=== PATIENT | male | born 1955 | race Two or more races ===

== ENCOUNTER 2023-07-31 08:54 | Outpatient (OUT) | payer MEDICARE, OTHER, SELFPAY ==
[2023-07-31 09:20] LABS: Basophils Absolute Auto 0.1 10^3/uL (0.0-0.1); Basophils Percent Auto 1.2 % (0.2-2.0); Eosinophils Absolute Auto 0.3 10^3/uL (0.0-0.7); Hematocrit 44.2 % (42.0-54.0); Hemoglobin 14.9 g/dL (14.0-18.0); Immature Granulocytes Abs Auto 0.04 10^3/uL (0.00-0.03); Immature Granulocytes Pct Auto 0.4 % (0.0-0.5); Lymphocytes Absolute Auto 2.9 10^3/uL (1.2-3.8); Lymphocytes Percent Auto 30.6 % (20.5-60.0); Mean Corpuscular HGB Conc 33.7 g/dL (29.9-35.2); Mean Corpuscular Hemoglobin 30.2 pg (25.9-34.0); Mean Corpuscular Volume 89.7 fL (80.0-94.0); Mean Platelet Volume 9.6 fL (9.5-13.5); Monocytes Absolute Auto 0.8 10^3/uL (0.3-0.8); Monocytes Percent Auto 8.6 % (1.7-12.0); Neutrophils Absolute Auto 5.4 10^3/uL (1.4-6.5); Neutrophils Percent Auto 56.2 % (43.0-75.0); Platelet Count 277 10^3/uL (150-450); Red Blood Count 4.93 10^6/uL (4.70-6.10); Red Cell Distribution Width 13.2 % (11.0-15.0); White Blood Count 9.5 10^3/uL (4.0-11.0)
[2023-07-31 09:36] LABS: Estimated Average Glucose 123 mg/dL; Glycohemoglobin A1C 5.9 % (4.5-6.2)
[2023-07-31 10:06] LABS: Prostate Specific Antigen Dx 0.84 ng/mL (<=4.00)
[2023-07-31 10:11] LABS: Alanine Aminotransferase 35 U/L (16-63); Albumin Globulin Ratio 0.9; Albumin Level 3.6 g/dL (3.4-5.0); Alkaline Phosphatase 90 U/L (46-116); Anion Gap 15.2; Aspartate Amino Transferase 11 U/L (15-37); BUN Creatinine Ratio 25.7; Bilirubin Direct 0.1 mg/dL (0.0-0.2); Bilirubin Total 0.5 mg/dL (0.2-1.0); Carbon Dioxide 24.6 mmol/L (21.0-32.0); Chloride 103 mmol/L (98-107); Cholesterol 238 mg/dL (<=200); Estimated GFR (African America >60 (>=60); Estimated GFR (Non-African Ame >60 (>=60); Glucose 119 mg/dL (74-106); HDL Cholesterol 48 mg/dL (40-60); Potassium 3.8 mmol/L (3.5-5.1); Sodium 139 mmol/L (136-145); Thyroid Stimulating Hormone 3.372 uIU/mL (0.358-3.740); Total Protein 7.6 g/dL (6.4-8.2); Triglycerides 389 mg/dL (<=150); VLDL CHOLESTEROL 77.8 mg/dL
== END 2023-07-31 08:55 | disposition home or self-care (01) ==
LOC: LAB 09:01
PROVIDERS: PCP Family Medicine; Visit Provider Family Medicine
DX: R73.03 Prediabetes (principal); Z79.899 Other long term (current) drug therapy; E78.5 Hyperlipidemia, unspecified; Z12.5 Encounter for screening for malignant neoplasm of prostate; E66.9 Obesity, unspecified
CPT/HCPCS: 36415; 80048; 80061; 80076; 83036; 84153; 84443; 85025

== ENCOUNTER 2024-09-02 08:49 | Outpatient (OUT) | payer MEDICARE, OTHER, SELFPAY ==
[2024-09-02 09:30] LABS: Basophils Absolute Auto 0.1 10^3/uL (0.0-0.1); Eosinophils Absolute Auto 0.4 10^3/uL (0.0-0.7); Eosinophils Percent Auto 3.5 % (0.9-7.0); Hematocrit 44.9 % (42.0-54.0); Hemoglobin 15.1 g/dL (14.0-18.0); Immature Granulocytes Abs Auto 0.05 10^3/uL (0.00-0.03); Immature Granulocytes Pct Auto 0.5 % (0.0-0.5); Lymphocytes Absolute Auto 2.7 10^3/uL (1.2-3.8); Lymphocytes Percent Auto 25.5 % (20.5-60.0); Mean Corpuscular HGB Conc 33.6 g/dL (29.9-35.2); Mean Corpuscular Hemoglobin 30.3 pg (25.9-34.0); Mean Corpuscular Volume 90.2 fL (80.0-94.0); Mean Platelet Volume 9.7 fL (9.5-13.5); Monocytes Absolute Auto 1.1 10^3/uL (0.3-0.8); Neutrophils Absolute Auto 6.3 10^3/uL (1.4-6.5); Neutrophils Percent Auto 59.5 % (43.0-75.0); Platelet Count 275 10^3/uL (150-450); Red Blood Count 4.98 10^6/uL (4.70-6.10); Red Cell Distribution Width 13.3 % (11.0-15.0); White Blood Count 10.5 10^3/uL (4.0-11.0)
[2024-09-02 10:22] LABS: Alanine Aminotransferase 37 U/L (16-63); Albumin Globulin Ratio 0.9; Albumin Level 3.7 g/dL (3.4-5.0); Alkaline Phosphatase 89 U/L (46-116); Aspartate Amino Transferase 20 U/L (15-37); Bilirubin Direct 0.1 mg/dL (0.0-0.2); Bilirubin Total 0.5 mg/dL (0.2-1.0); Calcium 8.9 mg/dL (8.5-10.1); Chloride 103 mmol/L (98-107); Chol HDL Ratio 4.5; Cholesterol 221 mg/dL (<=200); Estimated GFR (African America >60 (>=60 mL/min/1.73m^2); Estimated GFR (Non-African Ame >60 (>=60 mL/min/1.73m^2); Globulin 3.9 g/dL; Glucose 116 mg/dL (74-106); HDL Cholesterol 49 mg/dL (40-60); Sodium 142 mmol/L (136-145); Thyroid Stimulating Hormone 3.547 uIU/mL (0.358-3.740); Total Protein 7.6 g/dL (6.4-8.2); Triglycerides 320 mg/dL (<=150)
[2024-09-02 10:32] LABS: Prostate Specific Antigen Scrn 0.96 ng/mL (<=4.00)
[2024-09-02 11:19] LABS: Estimated Average Glucose 131 mg/dL; Glycohemoglobin A1C 6.2 % (4.5-6.2)
== END 2024-09-02 08:50 | disposition home or self-care (01) ==
LOC: LAB 08:52
PROVIDERS: PCP Family Medicine; Visit Provider Family Medicine
DX: R73.03 Prediabetes (principal); Z79.899 Other long term (current) drug therapy; I10 Essential (primary) hypertension; E78.5 Hyperlipidemia, unspecified; Z12.5 Encounter for screening for malignant neoplasm of prostate; E66.812 Obesity, class 2; E66.01 Morbid (severe) obesity due to excess calories; Z68.39 Body mass index [BMI] 39.0-39.9, adult
CPT/HCPCS: 36415; 80048; 80061; 80076; 83036; 84443; 85025; G0103

== ENCOUNTER 2024-12-26 16:43 | Emergency (ER) | payer MEDICARE, OTHER, SELFPAY ==
--- OUTSIDE RECORDS SUMMARY | 2024-12-26 16:58 | XMS_ITS | Encounter Summary ---
Author Organization [facility] Address [address] [place] [address] Care Team Providers Care Software Installation Engineer Name Role Phone Flavio Leon MD Primary Care Provider [phone] Flavio Leon MD Unavailable Encounter Details Date Type Department Care Team (Late st Contact Info) Description 09/02/2024 Results Follow-Up [facility] [address] [place] [address] Flavio Leon MD [address] [place] [address] ALL CBC WITH AUTO DIFF, HM[facility] LIVER PANEL, ALL BASIC METABOLIC PANEL, Additional followed-up results: 4 Social History Tobacco Use Types Packs/Day Years Used Date Smoking Tobacco: Never Smokeless Tobacco: Never B1300 Health Literacy Answer Date Recor ded How often do you need to hav e someone help you when you read instructions, pamphlets, or other written material from your doctor or pharmacy? Rarely 10/29/2023 Social Connection and Isolation Panel [NHANES] A nswer Date Recorded In a typical week, how many times do you talk on the phone with family, friends, or neighbors? Once a week 10/29/2023 How often do you get togethe r with friends or relatives? Patient declined 10/29/2023 How often do you attend scientology or baptism serv ices? Patient declined 10/29/2023 Do you belong to any clubs o r organizations such as scientology groups, unions, fraternal or athletic groups, or school groups? No 10/29/2023 How often do you attend meet ings of the clubs or organizations you belong to? Patient declined 10/29/2023 Are you , , di vorced, , never , or living with a partner? 10/29/2023 AUDIT-C Answer Date Recorded Q1: How often do you have a drink containing alc ohol? Monthly or less 10/29/2023 Q2: How many drinks containi ng alcohol do you have on a typical day when you are drinking? 1 or 2 10/29/2023 Q3: How often do you have si x or more drinks on one occasion? Never 10/29/2023 Overall Financial Resource Strain (CARDIA) Answe r Date Recorded How hard is it for you to pa y for the very basics like food, housing, medical care, and heating? Not hard at all 10/29/2023 PHQ-2 Answer Date Recorded Patient Health Questionnaire-2 Score 0 03/09/2024 [facility] - Occupational Stress Questionnaire Answer Date Recorded Do you feel stress - tense, restless, nervous, or anxious, or unable to sleep at night because your mind is troubled all the time - these days? Only a little 10/29/2023 Exercise Vital Sign Answer Date Recorde d On average, how many days pe r week do you engage in moderate to strenuous exercise (like a brisk walk)? Patient declined On average, how many minutes do you engage in exercise at this level? Patient declined 10/29/2023 Hunger Vital Sign Answer Date Recorded Within the past 12 months, y ou worried that your food would run out before you got the money to buy more. Never true 10/29/19 24 Within the past 12 months, t he food you bought just didn't last and you didn't have money to get more. Never true 10/29/2023 PRAPARE - Transportation Answer Date Re corded In the past 12 months, has l ack of transportation kept you from medical appointments or from getting medications? No 10/13 In the past 12 months, has l ack of transportation kept you from meetings, work, or from getting things needed for daily living? No 10/29/2023 Housing Stability Vital Sign Answer Chance e Recorded In the last 12 months, was t here a time when you were not able to pay the mortgage or rent on time? No 10/29/2023 Number of Times Moved in the Last Year Not on fi le 10/29/2023 At any time in the past 12 m [facility], were you homeless or living in a care home (including now)? No 10/29/2023 Sex and Gender Information Value Date Recorded Sex Assigned at Not on file Legal Sex Male 7:22 PM EDT Gender Identity Not on file Sexual Orientation Not on file documented as of this encounter Plan of Treatment Not on file documented as of this encounter Visit Diagnoses Not on filedocumented in this encounter Additional Health Concerns Assessment Noted Time PHQ-9 Depression Total Score: 3 03/09/20 24 8:00 AM EST documented as of this encounter Care Teams Software Installation Engineer Relationship Specialty Start Date End Date Flavio Leon MD PCP - General Family Medicine 07/30/23 Flavio Leon MD [address] [place] [address] PCP - ACO Reach 05/22/24 documented as of this encounter
--- OUTSIDE RECORDS SUMMARY | 2024-12-26 16:58 | XMS_ITS | Clinical Summary ---
Author Organization [facility] tem Address [id number] [address] [place] [address] Care Team Providers Care Lead Massage Therapist Name Role Phone Flavio Leon MD Primary Care Provider [phone] Allergies Active Allergy Reactions Criticality Noted Date Comments No Known Drug Allergies 07/03/2016 Medications meloxicam (MOBIC) 15 mg tablet Take 15 mg by mouth daily. Active timolol (TIMOPTIC) 0.5 % ophthalmic solution INSTILL 1 DROP IN BOTH EYES EVERY MORNING 01/16/2019 Active glucosamine-cho ndroitin 500-400 mg tablet Take 1 tablet by mouth 3 (three) times a day. Active zfwpblef-qgj-PC -lycopen-lutein (CENTRUM SILVER) 0.4-300-250 mg-mcg-mcg tablet Take 1 tablet by mouth daily. Active Active Problems No known active problems Family History Medical History Relation Name Comments Cancer Brother 1 1 LIPOCARCINOMA Cancer Brother 2 2 PROSTATE Cancer Father TESTICLE Diabetes Mother Hypertension Mother Relation Name Status Comments Brother 1 1 Brother 2 2 Father Alive Mother Alive Social History Tobacco Use Types Packs/Day Years Used Date Smoking Tobacco: Never Smokeless Tobacco: Never Alcohol Use Standard Drinks/Week Comments Not Currently 0 (1 standard drink = 0.6 oz pur e alcohol) Childcare Answer Date Recorded Childcare Unknown 09/24/2018 Employment Answer Date Recorded Employment Unknown 09/24/2018 Purpose - Life Answer Date Recorded Purpose and direction in life Unknown Sex and Gender Information Value Date Recorded Sex Assigned at Not on file Legal Sex Male 11:24 AM EDT Gender Identity Not on file Sexual Orientation Not on file Last Filed Vital Signs Vital Sign Reading Time Taken Comments Blood Pressure 142/80 04/22/2019 9:31 AM EST Pulse 88 02/27/2016 3:37 PM EST Temperature - - Respiratory Rate 14 02/27/2016 3:37 PM EST Oxygen Saturation 98% 02/27/2016 3:37 PM EST Inhaled Oxygen Concentration - - Weight 105.2 kg (232 lb) 04/22/2019 9:31 AM EST Height 175.3 cm (5' 9 ) 04/22/2019 9:31 AM EST Body Mass Index 34.26 04/22/2019 9:31 AM EST Plan of Treatment Health Maintenance Due Date Last Done Comments Depression Screening 1965 Tobacco Screening 1965 Adult BMI Screening 11/23/1971 DTaP,Tdap and Td Vaccines (1 - Tdap) 1972 Zoster (Shingles) Vaccine (1 of 2) 11/23/2003 Fall Risk Screening 2018 Influenza Vaccine 12/14/2024 Medical Devices Not on file Insurance [facility] MEDICARE Care Teams Lead Massage Therapist Relationship Specialty Start Date End Date Flavio Leon MD PCP - General Family Medicine 04/13/19
--- OUTSIDE RECORDS SUMMARY | 2024-12-26 16:58 | XMS_ITS | Clinical Summary ---
Author Organization [facility] Address [address] [place] [address] Care Team Providers Care Automobile Contract Clerk Name Role Phone Flavio Leon MD Primary Care Provider [phone] Flavio Leon MD Unavailable Allergies No known active allergies Medications latanoprost (Xalatan) 0.005 % ophthalmic solution instill 1 (ONE) DROP IN BOTH EYES AT BEDTIME 4 Active timolol (Timoptic) 0.5 % ophthalmic solution instill 1 DROP IN BOTH EYES IN THE MORNING 3 Active meloxicam (Mobic) 15 MG tabletIndications :Unspecified osteoarthritis, unspecified site TAKE 1 TABLET BY MOUTH DAILY 90 tablet 3 5 Active losartan (Cozaar) 25 MG tabletIndications :Benign essential hypertension TAKE 1 TABLET BY MOUTH DAILY 30 tablet 5 5 Active Active Problems Problem Noted Date Diagnosed Date Medicare annual wellness visit, subsequent 03/09 Assessment & Plan (03/09/2024 8:49 AM EST): Reviewed labs. Discussed proper diet and regular aerobic exercise. Need aerobic exercise 5-6 days a week for 30 minutes at a time. Smaller portions and limit total calories. Cologuard normal July 2023. Tetanus every 10 years. Advised not to smoke. Discussed daily Aspirin therapy. Arthritis 07/30/2023 Assessment & Plan (08/31/2024 9:08 AM EDT): Pain stable and use mobic PRN. Increase activity and walk regularly. Assessment & Plan (03/09/2024 8:43 AM EST): Pain stable and use mobic PRN. Increase activity and walk regularly. Assessment & Plan (12/05/2023 9:40 AM EDT): Pain stable and use mobic PRN. Increase activity and walk regularly. Assessment & Plan (07/30/2023 11:19 AM EDT): Pain stable and use mobic PRN. Increase activity and walk regularly. See's palsy 07/30/2023 Benign essential hypertension 07/30/2023 Assessment & Plan (08/31/2024 9:08 AM EDT): BP controlled and monitor PRN. Assessment & Plan (03/09/2024 8:43 AM EST): BP controlled and monitor PRN. Assessment & Plan (12/05/2023 9:40 AM EDT): BP controlled and monitor PRN. Assessment & Plan (11/05/2023 10:44 AM EDT): BP remains elevated and start treatment with losartan. Monitor BP PRN. Discussed DASH diet. Assessment & Plan (07/30/2023 11:19 AM EDT): BP elevated and need to monitor PRN. Discussed DASH diet. If regularly 140/90 or greater will need to treat for HTN. Dyslipidemia 07/30/2023 Glaucoma 07/30/2023 Prediabetes 07/30/2023 Encounter for long-term (current) use of medicat ions 07/30/2023 Class 2 severe obesity due t o excess calories with serious comorbidity and body mass index (BMI) of 39.0 to 39.9 in adult 07/30/2023 Assessment & Plan (08/31/2024 9:09 AM EDT): Weight unchanged. Discussed proper diet and regular aerobic exercise. Recommend Weight Watchers and need to limit calories and smaller portions. Need to increase activity and regular aerobic exercise several days a week for 30 minutes at a time. Assessment & Plan (03/09/2024 8:43 AM EST): Weight unchanged. Discussed proper diet and regular aerobic exercise. Recommend Weight Watchers and need to limit calories and smaller portions. Need to increase activity and regular aerobic exercise several days a week for 30 minutes at a time. Assessment & Plan (12/05/2023 9:40 AM EDT): Weight down 3 pounds since last visit. Discussed proper diet and regular aerobic exercise. Recommend Weight Watchers and need to limit calories and smaller portions. Need to increase activity and regular aerobic exercise several days a week for 30 minutes at a time. Assessment & Plan (07/30/2023 11:19 AM EDT): Discussed proper diet and regular aerobic exercise. Recommend Weight Watchers and need to limit calories and smaller portions. Need to increase activity and regular aerobic exercise several days a week for 30 minutes at a time. Screening PSA (prostate specific antigen) 2023 Encounters Date Type Department Care Team Description 10/29/2024 Refill [facility] [address] [place] [phone] Flavio Leon MD Benign essential hypertension 10/19/2024 Telephone [facility] [address] [place] [address] Dorcas Iglesias, [facility] Left hearing aid problem from Last 3 Months Social History Tobacco Use Types Packs/Day Years Used Date Smoking Tobacco: Never Smokeless Tobacco: Never Tobacco Cessation:Counseling Given: Not Answered B1300 Health Literacy Answer Date Recor ded [...] declined 10/29/2023 How often do you attend christianity or zoroastrian serv ices? Patient declined 10/29/2023 Do you belong to any clubs o r organizations such as christianity groups, unions, fraternal or athletic groups, or [...] Recorded Patient Health Questionnaire-2 Score 0 03/09/2024 [facility] Health - Occupational Stress [...] any time in the past 12 m [facility], were you homeless or living in a detention (including now)? No 10/29/2023 Sex and Gender Information Value Date Recorded Sex Assigned at Not on file Legal Sex Male 7:22 PM EDT Gender Identity Not on file Sexual Orientation Not on file Last Filed Vital Signs Vital Sign Reading Time Taken Comments Blood Pressure 128/70 08/31/2024 8:37 AM EDT Pulse 98 08/31/2024 8:37 AM EDT Temperature 36.2 C (97.1 F) 08/31/2024 8:37 AM EDT Respiratory Rate 18 08/31/2024 8:37 AM EDT Oxygen Saturation 97% 08/31/2024 8:37 AM EDT Inhaled Oxygen Concentration - - Weight 121 kg (266 lb) 08/31/2024 8:37 AM EDT Height 175.3 cm (5' 9 ) 08/31/2024 8:37 AM EDT Body Mass Index 39.28 08/31/2024 8:37 AM EDT Plan of Treatment Health Maintenance Due Date Last Done Comments CT Colonography 1953 Colonoscopy 1953 FIT 1953 FOBT 1955 Sigmoidoscopy 1955 Pneumococcal Vaccine: 65+ Ye ars (1 of 1 - PCV) 11/23/2003 Influenza Vaccine (#1) 2024 01/22/2023 Medicare Annual Wellness (AWV) 03/09/2025 03/09/2024 Colorectal Cancer Screening 08/05/2026 FIT-DNA 08/05/2026 08/06/2023, 12/08/2018 Procedures Procedure Name Priority Date/Time Associated Diagnosis Comments LAB COLOGUARD COLON CANCER SCREEN Routine 08/06/2023 9:15 AM EDT Colon cancer screening from Last 3 Months or Most Recently Relevant to Health Maintenance Results * Cologuard?? colon cancer screening (08/06/2023 9:15 AM EDT) NONINV COLON CA DNA+OCC BLD SCRN STL-IMP Negative Negative 08/14/2023 4:23 AM EDT [facility] (CLIA #:[id number]) Comment: NEGATIVE TEST RESULT. A negative Cologuard result indicates a low likelihood that a colorectal cancer (CRC) or advanced adenoma (adenomatous polyps with more advanced pre-malignant features) is present. The chance that a person with a negative Cologuard test has a colorectal cancer is less than 1 in 1500 (negative predictive value >99.9%) or has an advanced adenoma is less than 5.3% (negative predictive value 94.7%). These data are based on a prospective cross-sectional study of 10,000 individuals at average risk for colorectal cancer who were screened with both Cologuard and colonoscopy. (David T. et al, N Engl J Med 2014;370(14):5915-9291) The normal value (reference range) for this assay is negative. COLOGUARD RE-SCREENING RECOMMENDATION: Periodic colorectal cancer screening is an important part of preventive healthcare for asymptomatic individuals at average risk for colorectal cancer. Following a negative Cologuard result, the [place] [employer] Society and U.S. Multi-Society Task Force screening guidelines recommend a Cologuard re-screening interval of 3 years. References: [place] [employer] Guideline for Colorectal Cancer Screening: https://www.cancer.org/cancer/ekotn-aouuyk-roorjm/otggiuyos-sigmkxctb-qvxwdxp/ac s-rec ommendations.html.; Brendan SHEPHERD, Liza RNAD, Adore TaylorK, Colorectal Cancer Screening: Recommendations for Physicians and Patients from the U.S. Multi-Society Task Force on Colorectal Cancer Screening , Am J Gastroenterology 2017; 112:3346-0034. TEST DESCRIPTION: Composite algorithmic analysis of stool DNA-biomarkers with hemoglobin immunoassay. Quantitative values of individual biomarkers are not reportable and are not associated with individual biomarker result reference ranges. Cologuard is intended for colorectal cancer screening of adults of either sex, 45 years or older, who are at average-risk for colorectal cancer (CRC). Cologuard has been approved for use by the U.S. FDA. The performance of Cologuard was established in a cross sectional study of average-risk adults aged 50-84. Cologuard performance in patients ages 45 to 49 years was estimated by sub-group analysis of near-age groups. Colonoscopies performed for a positive result may find as the most clinically significant lesion: colorectal cancer [4.0%], advanced adenoma (including sessile serrated polyps greater than or equal to 1cm diameter) [20%] or non- advanced adenoma [31%]; or no colorectal neoplasia [45%]. These estimates are derived from a prospective cross-sectional screening study of 10,000 individuals at average risk for colorectal cancer who were screened with both Cologuard and colonoscopy. (David Talbert. et al, N Engl J Med 2014;370(14):2593-4652.) Cologuard may produce a false negative or false positive result (no colorectal cancer or precancerous polyp present at colonoscopy follow up). A negative Cologuard test result does not guarantee the absence of CRC or advanced adenoma (pre-cancer). The current Cologuard screening interval is every 3 years. ([place] [employer] Society and U.S. Multi-Society Task Force). Cologuard performance data in a 10,000 patient pivotal study using colonoscopy as the reference method can be accessed at the following location: www.[employer] [place]/results. Additional description of the Cologuard test process, warnings and precautions can be found at www.cologuard.com. Stool specimen (specimen) 08/06/2023 9:15 AM EDT 08/07/2023 11:44 AM EDT Flavio Leon MD LAB MOLECULAR DIAGNOSTICS ORDERA BLES Final Result .[facility] (CLIA #:[id number]) [address] [place] [address], [facility] (CLIA #:[id number]) [address] [place] [address] from Last 3 Months or Most Recently Relevant to Health Maintenance Insurance MEDICARE [facility] [place] Care Teams Automobile Contract Clerk Relationship Specialty Start Date End Date Flavio Leon MD PCP - General Family Medicine 07/30/23 Flavio Leon MD [address] [place] [address] PCP - ACO Reach 05/22/24
--- OUTSIDE RECORDS SUMMARY | 2024-12-26 16:58 | XMS_ITS | Encounter Summary ---
Author Organization [facility] Address [address] [place] [address] Care Team Providers Care Dope Worker Name Role Phone Flavio Leon MD Primary Care Provider Flavio Leon MD Unavailable Encounter Details Date Type Department Care Team (Late st Contact Info) Description 07/24/2023 Orders Only [facility] [address] [place] [address] Flavio Leon MD [address] [place] [phone] Social History Tobacco Use Types Packs/Day Years Used Date Smoking Tobacco: Never Assessed Sex and Gender Information Value Date Recorded Sex Assigned at Not on file Legal Sex Male 7:22 PM EDT Gender Identity Not on file Sexual Orientation Not on file documented as of this encounter Plan of Treatment Not on file documented as of this encounter Visit Diagnoses Not on filedocumented in this encounter Care Teams Dope Worker Relationship Specialty Start Date End Date Flavio Leon MD PCP - General Family Medicine 07/30/23 Flavio Leon MD [address] [place] [phone] PCP - ACO Reach 05/22/24 documented as of this encounter
[2024-12-26 17:09] VITALS: BP 154/81; PULSE 100; TEMP 36.7; O2SAT 97; BMI 38.7
--- NOTE | 2024-12-26 19:57 | ED_ITS ---
HPI - Skin/Abscess/Foreign Bdy General Chief complaint: Skin/Abscess/Foreign Body Stated complaint: WOULD LIKE SOMETHING ON HIS LEFT SIDE LOOKED AT Time Seen by Provider: 12/26/24 19:28 Source: patient Mode of arrival: walk-in History of Present Illness HPI narrative: 69-year-old male presents to the ED with a 10-day history of left-sided abdominal pain and rash. He reports that 3 blister-like spots appeared on the left anterior abdomen, which drained clear fluid before crusting over. Pain is described as shooting and burning, following a dermatomal pattern from the left abdomen to the back, and sometimes severe enough to keep him awake at night. He was evaluated at urgent care and prescribed a 7-day course of antiviral medication (1 day remaining). He has been using acetaminophen with minimal pain relief. He denies fever, chills, drainage, or new lesions. No nausea, vomiting, or abdominal pain, pain or shortness of breath, dizziness or fever. Related Data Home Medications ?Medication ?Instructions ?Recorded ?Confirmed latanoprost 0.005 % eye drops drp ophthalmic (eye) losartan 25 mg tablet mg 12/26/24 meloxicam 15 mg tablet mg 12/26/24 timolol maleate 0.5 % eye drops drp ophthalmic (eye) 0 12/26/24 valacyclovir 1 gram tablet mg 12/26/24 Allergies Allergy/AdvReac Type Severity Reaction Status Date / Time No Known Drug Allergies Allergy Verified 12/26/24 17:08 PFSH PFSH Social History Little interest or pleasure in doing things: not at all Feeling down, depressed, or hopeless: not at all Exam Narrative Exam Narrative: General: Alert, oriented, mildly uncomfortable. Vitals: Stable. Skin: Three crusted lesions on the left anterior abdominal wall, consistent with healing herpes zoster lesions. No surrounding erythema, warmth, or drainage. No new vesicles noted. Abdomen: Soft, non-tender, non-distended. No masses, guarding, or rebound. Back: No additional lesions or rash noted. Neuro: Sensation intact except for hyperesthesia in affected dermatome. No focal neurological deficits. Constitutional Vital Signs, click to edit/add: Last Vital Signs Temp 98.1 F 12/26/24 17:09 Pulse 100 H 12/26/24 17:09 Resp 18 12/26/24 17:09 BP 154/81 H 12/26/24 17:09 Pulse Ox 97 12/26/24 17:09 O2 Del Method Room Air 12/26/24 17:09 Course Vital Signs Vital signs: Vital Signs Temperature 98.1 F 12/26/24 17:09 Pulse Rate 100 H 12/26/24 17:09 Respiratory Rate 18 12/26/24 17:09 Blood Pressure 154/81 H 12/26/24 17:09 Pulse Oximetry 97 12/26/24 17:09 Oxygen Delivery Method Room Air 12/26/24 17:09 Temperature 98.1 F 12/26/24 17:09 Pulse Rate 100 H 12/26/24 17:09 Respiratory Rate 18 12/26/24 17:09 Blood Pressure 154/81 H 12/26/24 17:09 Pulse Oximetry 97 12/26/24 17:09 Oxygen Delivery Method Room Air 12/26/24 17:09 MDM - Skin/Abscess/Foreign Bdy MDM Narrative Medical decision making narrative: 69-year-old male with resolving herpes zoster but persistent neuropathic pain consistent with acute zoster-associated pain / early postherpetic neuralgia. Lesions appear to be healing appropriately with no evidence of secondary bacterial infection. No signs of disseminated zoster or complications such as zoster ophthalmicus or visceral involvement. Differential includes postherpetic neuralgia, resolving acute shingles, and bacterial superinfection (not supported by exam). Given the pain severity and poor response to acetaminophen, additional pain management is warranted. Plan: * Continue and complete antiviral therapy as prescribed (1 day remaining). * Start gabapentin 300 mg at bedtime, titrate to TID over 3 days as tolerated for neuropathic pain. * May use lidocaine 5% patches to affected area (12 hours on, 12 hours off). * Continue acetaminophen PRN. * Prescribed [place] 5/325 mg PO q6h PRN for severe breakthrough pain ? instructed patient to use sparingly. * Opioid counseling provided: risk of sedation, dizziness, constipation, nausea, and potential dependency; avoid alcohol and driving while taking. * Educated patient about postherpetic neuralgia and expected duration of pain. * Strict return precautions for new lesions, fever, spreading rash, confusion, or severe pain uncontrolled with medication. * Follow up with PCP in 1 week for medication titration and further management. Differential Diagnosis Differential diagnosis: Likely abscess of skin or subcutaneous tissue, viral exanthem, urticaria, herpes zoster, cellulitis, impetigo and contact dermatitis Medical Records Attestation: I reviewed the patient's medical records. Discharge Plan Discharge Chief Complaint: Skin/Abscess/Foreign Body Clinical Impression: Post herpetic neuralgia, History of shingles Patient Disposition: Home, Self-Care Time of Disposition Decision: 19:54 Condition: Good Prescriptions / Home Meds: No Action latanoprost 0.005 % drops OPHTHALMIC (EYE) valacyclovir 1 gram tablet meloxicam 15 mg tablet losartan 25 mg tablet timolol maleate 0.5 % drops OPHTHALMIC (EYE) Print Language: Serbian Instructions: Shingles (ED) Additional Instructions: Discharge Instructions ? Shingles / Postherpetic Neuralgia What You Have: You have shingles on the left side of your abdomen. The blisters are healing and crusted over, but you are still experiencing burning and shooting nerve pain in that area. This type of pain is called postherpetic neuralgia and can last several weeks. What is Postherpetic Neuralgia (PHN)? Postherpetic neuralgia is nerve pain that continues after a shingles (herpes zos ter) rash has healed. It happens because the virus can damage the nerves in the area where the rash appeared. Symptoms * Pain that can be burning, stabbing, or aching * Sensitivity to touch (even clothing touching the skin can hurt) * It usually occurs in the area where the shingles rash was * Can last weeks, months, or sometimes even years after the rash is gone Risk Factors * Older age (especially over 60) * Severe shingles rash or intense pain during shingles * Certain health conditions that weaken the immune system Medications: * Gabapentin: Take 300 mg at bedtime, increasing to three times daily as tolerated. Helps reduce nerve pain. * Mayfield 5/325 mg: Take as needed for severe breakthrough pain, no more than every 6 hours. Use sparingly. * Important: Can cause drowsiness, dizziness, constipation, and has a risk of dependency. Avoid alcohol and driving while taking. * Acetaminophen: Continue as needed for mild pain, do not mix with [place].. * Lidocaine 5% patch: Apply to affected area for 12 hours on, 12 hours off for localized pain relief. Home Care: * Keep the area clean and dry. Wash gently with soap and water once daily. * Avoid scratching to prevent irritation or infection. * Apply warm compresses or sitz baths several times a day to reduce discomfort. * Wear loose-fitting clothing to avoid rubbing the area. When to Call Your Doctor or Return to the ED: * New blisters, redness, warmth, swelling, or pus * Fever or chills * Pain not controlled by prescribed medications * Numbness, weakness, or changes in bowel/bladder function * Any other rapidly worsening symptoms Follow-Up: * PCP visit in 1 week to check progress and adjust medications. * Discuss possible referral to pain specialist or neurologist if pain persists. When following up discuss with your PCP if pain persists: Treatment Options While PHN pain can be difficult to eliminate completely, there are ways to manage and reduce it: * Medications: * Pain relievers: [id number]-[id number] options (acetaminophen, NSAIDs) * Prescription medications: * Anticonvulsants (e.g., gabapentin, pregabalin) * Certain antidepressants (e.g., amitriptyline, duloxetine) * Topical treatments (lidocaine patches, capsaicin cream) * Other Therapies: * Nerve blocks or injections in some cases * Physical therapy for comfort and mobility * Relaxation techniques, mindfulness, or counseling to help cope with chronic pain Prevention * Shingles vaccine can help prevent shingles and reduce the risk of PHN * Early treatment of shingles with antiviral medication (within 72 hours of rash onset) may reduce the chance of developing PHN When to Seek Medical Attention * Pain is severe or not improving with treatment * New symptoms like weakness, numbness, or spreading rash * Signs of infection in the area of prior shingles Referrals: Flavio Leon MD [Primary Care Provider, [facility]] - 1 week Discharge Date/Time: 12/26/24 20:25
[2024-12-26] MEDS: HYDROCODONE/ACET 5-325 MG TABLET 1 TAB PO (20:10)
[2024-12-26] MEDS: LIDOCAINE 5% PATCH 1 PATCH TOPICAL (20:10)
[2024-12-26] MEDS: GABAPENTIN 300 MG CAPSULE PO (20:10)
== END 2024-12-26 20:25 | disposition home or self-care (01) ==
PROVIDERS: Emergency Provider Emergency Medicine; PCP Family Medicine
DX: B02.29 Other postherpetic nervous system involvement (principal)
CPT/HCPCS: 99283

== ENCOUNTER 2024-12-28 05:24 | Emergency (ER) | payer MEDICARE, OTHER, SELFPAY ==
[2024-12-28 05:31] VITALS: BP 161/106; PULSE 104; TEMP 36.9; O2SAT 97; BMI 38.7
--- NOTE | 2024-12-28 06:20 | XR_ITS ---
[place] [id number] Patient Name: DOROTHY JOHNSON MRN: [id number] date: 1955 Sex: M Assigned Patient Location: ER Current Patient Location: ED.MAIN Accession/Order Number: [id number] Exam Date: 12/28/2024 06:28 Report Date: 12/28/2024 08:36 At the request of: BORA HUMPHRIES MD Procedure: XR chest 2V PA AND LATERAL CHEST: CLINICAL HISTORY: chest pain COMPARISON: None There are subtle suspected nipple shadows. There is no focal parenchymal consolidation, effusion or pneumothorax. The cardiac, hilar and mediastinal silhouettes are within normal limits. There is no vascular congestion. The visualized bony thorax is intact. There is endplate spurring at the spine. XR/XR chest 2V IMPRESSION: NO ACUTE CARDIOPULMONARY ABNORMALITY. Impression dictated by: Harriet Cabello M.D. 12/28/2024 8:36 AM Dictation Location: K94 [facility]iesPR[facility]ITALInt[facility] Electronically authenticated by: [id number] Y Date: 12/28/2024 08:36
--- NOTE | 2024-12-28 06:20 | ED.GENADUL1 ---
HPI HPI - General Adult General Chief complaint: Skin/Abscess/Foreign Body Stated complaint: LEFT ABDOMINAL PAIN Time Seen by Provider: 12/28/24 05:49 Source: patient Mode of arrival: walk-in Limitations: no limitations History of Present Illness HPI narrative: seen at urgent care and treated for shingles with valtrex that he completed. prescribed neurontin , lidoderm patch and [place]. Continues to have pain. Points to left anterior lower rib cage. Not short of breath.pain is not pleuritic. also has pain left posterior rib cage. No change in pain with change in position. No fever or dyspnea Related Data Home Medications ?Medication ?Instructions ?Recorded ?Confirmed latanoprost 0.005 % eye drops drp ophthalmic (eye) 12/26/24 losartan 25 mg tablet mg 12/26/24 meloxicam 15 mg tablet mg 12/26/24 timolol maleate 0.5 % eye drops drp ophthalmic (eye) 12/26/24 valacyclovir 1 gram tablet mg 12/26/24 Allergies Allergy/AdvReac Type Severity Reaction Status Date / Time No Known Drug Allergies Allergy Verified 12/28/24 05:36 Opioid HPI Opioid Management Most Recent Opioid Data: Last Pain Scale 9 Today, 05:50 Last ED Pain Assessment Today, 05:50 Last MAR Pain Assessment 12/26/24, 20:10 Review of Systems ROS Status of ROS 10 or more systems reviewed and unremarkable except as noted in history and below PFSH PFSH Social History Little interest or pleasure in doing things: not at all Feeling down, depressed, or hopeless: not at all Exam Constitutional Vital Signs, click to edit/add: Last Vital Signs Temp 98.5 F 12/28/24 05:31 Pulse 104 H 12/28/24 05:31 Resp 18 12/28/24 05:31 BP 161/106 H 12/28/24 05:31 Pulse Ox 97 12/28/24 05:31 O2 Del Method Room Air 12/28/24 05:31 Common normals: no apparent distress, average body habitus, oriented x3, no limitations, healthy appearing, alert and well nourished [facility] Common normals: normocephalic and head/scalp atraumatic Eye Common normals: EOMs intact bilaterally and conjunctivae normal Chest Other: tenderness of left anterior inferior and left posterior inferior chest wall. also few dry scabbed over lesions of reported shingles on xiphoid/epigastric area. No obvious lesions on his back Respiratory Common normals: normal respiratory effort, no retractions, no use of accessory muscles and clear to auscultation bilaterally Cardio Common normals: regular rate, regular rhythm, S1 normal heart sound and S2 normal heart sound GI Common normals: Normal to inspection, nondistended, normoactive bowel sounds present and soft to palpation Other: minor tenderness left upper quad of the abdomen. More tender adjoining left inferior anterior chest wall Back & Pelvis Common normals: thoracic and lumbar spine normal to inspection Extremity Common normals: normal to inspection and full ROM Neuro Common normals: oriented x3, CN's II-XII intact bilaterally, moves all extremities and no focal motor deficits Psych Appearance: grossly normal Course Vital Signs Vital signs: Vital Signs Temperature 98.5 F 12/28/24 05:31 Pulse Rate 104 H 12/28/24 05:31 Respiratory Rate 18 12/28/24 05:31 Blood Pressure 161/106 H 12/28/24 05:31 Pulse Oximetry 97 12/28/24 05:31 Oxygen Delivery Method Room Air 12/28/24 05:31 Temperature 98.5 F 12/28/24 05:31 Pulse Rate 104 H 12/28/24 05:31 Respiratory Rate 18 12/28/24 05:31 Blood Pressure 161/106 H 12/28/24 05:31 Pulse Oximetry 97 12/28/24 05:31 Oxygen Delivery Method Room Air 12/28/24 05:31 Medical Decision Making MDM Narrative Medical decision making narrative: patient presents with what appears to be likely post herpetic pain of his chest and back. labs and cxray ordered. care transferred to the oncoming physician at change of shift Discharge Plan Discharge Patient Disposition: Still a Patient
[2024-12-28 06:53] LABS: Hematocrit 44.1 % (42.0-54.0); Hemoglobin 15.4 g/dL (14.0-18.0); Immature Granulocytes Abs Auto 0.04 10^3/uL (0.00-0.03); Immature Granulocytes Pct Auto 0.4 % (0.0-0.5); Lymphocytes Absolute Auto 3.7 10^3/uL (1.2-3.8); Mean Corpuscular HGB Conc 34.9 g/dL (29.9-35.2); Mean Corpuscular Hemoglobin 30.6 pg (25.9-34.0); Mean Corpuscular Volume 87.7 fL (80.0-94.0); Platelet Count 294 10^3/uL (150-450); Red Blood Count 5.03 10^6/uL (4.70-6.10); White Blood Count 11.3 10^3/uL (4.0-11.0)
[2024-12-28 07:12] LABS: Alanine Aminotransferase 30 U/L (16-63); Albumin Globulin Ratio 0.9; Albumin Level 4.0 g/dL (3.4-5.0); Alkaline Phosphatase 89 U/L (46-116); Anion Gap 16.1; Aspartate Amino Transferase 19 U/L (15-37); Blood Urea Nitrogen 14.0 mg/dL (7.0-18.0); Calcium 9.1 mg/dL (8.5-10.1); Carbon Dioxide 22.9 mmol/L (21.0-32.0); Chloride 103 mmol/L (98-107); Estimated GFR (African America >60 (>=60 mL/min/1.73m^2); Estimated GFR (Non-African Ame >60 (>=60 mL/min/1.73m^2); Globulin 4.3 g/dL; Glucose 119 mg/dL (74-106); Potassium 4.0 mmol/L (3.5-5.1); Sodium 138 mmol/L (136-145); Total Protein 8.3 g/dL (6.4-8.2)
[2024-12-28] MEDS: OXYCODONE HCL/ACETAMINOPHEN 5MG/325MG 1 TAB PO (08:22)
[2024-12-28] MEDS: KETOROLAC TROMETHAMINE 30 MG/ML VIAL IVP (08:22)
== END 2024-12-28 08:56 | disposition home or self-care (01) ==
PROVIDERS: Emergency Provider Internal Medicine; PCP Family Medicine
DX: B02.29 Other postherpetic nervous system involvement (principal); R07.89 Other chest pain
CPT/HCPCS: 36415; 71046; 80053; 84484; 85025; 96374; 99284; J1885